=== PATIENT | female | born 1990 | race American Indian/Alaskan Native ===

== ENCOUNTER 2019-07-22 05:39 | Emergency (ER) | payer BC, OTHER ==
[2019-07-22 06:22] LABS: Bacteria,Urine 2+ /HPF (Negative); Bilirubin,Urine NEG (Negative); Blood,Urine SM (Negative); Color,Urine Yellow (Yellow); Mucus,Urine FEW /HPF; Urobilinogen,Urine < 2.0 mg/dL (<2.0)
[2019-07-22 06:24] LABS: HCG Qualitative,Urine Negative (Negative)
[2019-07-22] MEDS ORDERED: SODIUM CHLORIDE 0.9% 1000 ML 1,000 ML IV ONE (07:38)
[2019-07-22] MEDS ORDERED: ONDANSETRON 4 MG/2 ML INJ IV ONE (07:38)
[2019-07-22] MEDS ORDERED: MORPHINE 4 MG/1 ML INJ IV ONE (07:38)
[2019-07-22] MEDS ORDERED: DICYCLOMINE 20 MG TAB PO ONE (07:38)
--- NOTE | 2019-07-22 08:14 | Emergency Department Report ---
ED Abdominal Pain HPI - General Chief Complaint: Abdominal Pain Stated Complaint: ABD PAIN/DIARREAH/VOMITING Time Seen by Provider: 07/22/19 07:30 Source: patient Mode of arrival: Ambulatory Limitations: No Limitations - History of Present Illness Initial Comments: This is a 29-year-old female nontoxic, well nourished in appearance, no acute signs of distress presents to the ED with c/o of nausea and vomiting and abdominal pain 1 day. Patient describes vomiting as food content and yellow gastric acid. Patient describes abdominal pain as cramping and aching with level of 3/10 diffuse. Patient denies any vaginal discharge, flank pain, or pelvic pain. Patient denies chest pain, short of breath, fever, chills, headache, stiff neck, numbness or tingling. Patient denies any diarrhea or constipation. Patient denies any recent travels. Patient denies any allergies. PMH includes appendectomy. MD Complaint: abdominal pain -: days(s) Location: diffuse Radiation: none Migration to: no migration Severity: mild Severity scale (0 -10): 8 Quality: aching Consistency: constant Improves With: nothing Worsens With: nothing Associated Symptoms: nausea, vomiting. denies: diarrhea, fever, chills, constipation, dysuria, hematemesis, hematochezia, melena, hematuria, anorexia, syncope - Related Data Home Medications Medication Instructions Recorded Confirmed Last Taken Ciprofloxacin HCl [Cipro] 500 mg PO BID 04/03/13 04/03/13 05:22 500 mg Hydrocodone Bit/Acetaminophen 1 each PO QID PRN 04/03/13 04/03/13 05:22 [Lortab 5-500 Tablet] 5/500mg Promethazine [Phenergan] 25 mg PO Q6H PRN 04/03/13 04/03/13 04/03/13 05:22 25 mg metroNIDAZOLE [Flagyl] 500 mg PO BID 04/03/13 04/03/13 05:22 500 mg Previous Rx's Medication Instructions Recorded Last Taken Type Ciprofloxacin HCl [Cipro] 500 mg PO Q12H #10 tab 04/14/13 Unknown Rx metroNIDAZOLE [Flagyl] 500 mg PO Q8HR #14 tablet 04/14/13 Unknown Rx Ondansetron [Zofran Odt] 4 mg PO Q8HR PRN #20 tab.rapdis 07/22/19 Unknown Rx Sulfamethoxazole/Trimethoprim 1 each PO BID #14 tablet 07/22/19 Unknown Rx [Bactrim DS TAB] Allergies Allergy/AdvReac Type Severity Reaction Status Date / Time No Known Allergies Allergy Verified 07/22/19 05:41 ED Review of Systems ROS: Stated complaint: ABD PAIN/DIARREAH/VOMITING Other details as noted in HPI Constitutional: denies: chills, fever Eyes: denies: eye pain, eye discharge, vision change ENT: denies: ear pain, throat pain Respiratory: denies: cough, shortness of breath, wheezing Cardiovascular: denies: chest pain, palpitations Endocrine: no symptoms reported Gastrointestinal: abdominal pain, nausea, vomiting. denies: diarrhea Genitourinary: denies: urgency, dysuria, discharge Musculoskeletal: denies: back pain, joint swelling, arthralgia Skin: denies: rash, lesions Neurological: denies: headache, weakness, paresthesias Psychiatric: denies: anxiety, depression Hematological/Lymphatic: denies: easy bleeding, easy bruising ED Past Medical Hx - Past Medical History Hx Congestive Heart Failure: No Hx Diabetes: No Hx Deep Vein Thrombosis: No Hx Asthma: No Hx COPD: No Additional medical history: Diagnosed with UTI - Surgical History Hx Pacemaker: No Hx Internal Defibrillator: No Hx Appendectomy: Yes - Social History Smoking Status: Never Smoker Substance Use Type: Alcohol - Medications Home Medications: Home Medications Medication Instructions Recorded Confirmed Last Taken Type Ciprofloxacin HCl [Cipro] 500 mg PO BID 04/03/13 04/03/13 05:22 History 500 mg Hydrocodone Bit/Acetaminophen 1 each PO QID PRN 04/03/13 04/03/13 05:22 History [Lortab 5-500 Tablet] 5/500mg Promethazine [Phenergan] 25 mg PO Q6H PRN 04/03/13 04/03/13 04/03/13 05:22 History 25 mg metroNIDAZOLE [Flagyl] 500 mg PO BID 04/03/13 04/03/13 05:22 History 500 mg Ciprofloxacin HCl [Cipro] 500 mg PO Q12H #10 tab 04/14/13 Unknown Rx metroNIDAZOLE [Flagyl] 500 mg PO Q8HR #14 tablet 04/14/13 Unknown Rx Ondansetron [Zofran Odt] 4 mg PO Q8HR PRN #20 tab.rapdis 07/22/19 Unknown Rx Sulfamethoxazole/Trimethoprim 1 each PO BID #14 tablet 07/22/19 Unknown Rx [Bactrim DS TAB] ED Physical Exam - General Limitations: No Limitations General appearance: alert, in no apparent distress - Head Head exam: Present: atraumatic, normocephalic - Eye Eye exam: Present: normal appearance - Neck Neck exam: Present: normal inspection, full ROM. Absent: tenderness, meningismus, lymphadenopathy - Respiratory Respiratory exam: Present: normal lung sounds bilaterally. Absent: respiratory distress, wheezes, rales, rhonchi, stridor, chest wall tenderness, accessory muscle use, decreased breath sounds, prolonged expiratory - Cardiovascular Cardiovascular Exam: Present: regular rate, normal rhythm, normal heart sounds. Absent: bradycardia, tachycardia, irregular rhythm, systolic murmur, diastolic murmur, rubs, gallop - GI/Abdominal GI/Abdominal exam: Present: soft, tenderness (diffuse), normal bowel sounds. Absent: distended, guarding, rebound, rigid, diminished bowel sounds - Extremities Exam Extremities exam: Present: normal inspection, full ROM - Back Exam Back exam: Present: normal inspection, full ROM. Absent: tenderness, CVA tenderness (R), CVA tenderness (L), muscle spasm, paraspinal tenderness, vertebral tenderness, rash noted - Neurological Exam Neurological exam: Present: alert, oriented X3, normal gait - Psychiatric Psychiatric exam: Present: normal affect, normal mood - Skin Skin exam: Present: warm, dry, intact, normal color. Absent: rash ED Course Vital Signs 07/22/19 07/22/19 05:42 05:44 Temperature 98.3 F 98.3 F Pulse Rate 83 83 Respiratory 18 18 Rate Blood Pressure 145/94 145/94 O2 Sat by Pulse 99 99 Oximetry - Reevaluation(s) Reevaluation #1: 07/22/19 08:12 Patient is speaking in full sentences with no signs of distress noted. ED Medical Decision Making - Lab Data Result diagrams: 07/22/19 07:55 07/22/19 07:55 - Medical Decision Making This is a 29-year-old female that presents with abdominal pain and UTI. Patient is stable and was examined by me. Labs obtained. UA obtained. CT of abdomen obtained and dictated by the radiologist. Patient is notified of the report with no questions noted by the patient. Vital signs are stable prior to discharge. Patient received medical treatment in the ED which patient stated symptoms has resovled and subsided. Was instructed note to operate any machinery due to possible drowsiness and stated someone will drive the patient home. A by mouth challenge has been obtained and patient tolerated well with no nausea vomiting. Patient was also instructed to Follow-up with a primary care doctor in 3-5 days or if symptoms worsen and continue return to emergency room as soon as possible. At time of discharge, the patient does not seem toxic or ill in appearance. No acute signs of distress noted. Patient agrees to discharge treatment plan of care. No further questions noted by the patient. Critical care attestation.: If time is entered above; I have spent that time in minutes in the direct care of this critically ill patient, excluding procedure time. ED Disposition Clinical Impression: Abdominal pain Qualifiers: Abdominal location: generalized Qualified Code(s): R10.84 - Generalized abdominal pain Nausea & vomiting Qualifiers: Vomiting type: unspecified Vomiting Intractability: non-intractable Qualified Code(s): R11.2 - Nausea with vomiting, unspecified UTI (urinary tract infection) Qualifiers: Urinary tract infection type: site unspecified Hematuria presence: without hematuria Qualified Code(s): N39.0 - Urinary tract infection, site not specified Disposition: DC-01 TO HOME OR SELFCARE Is pt being admited?: No Does the pt Need Aspirin: No Condition: Stable Instructions: Abdominal Pain (ED), Urinary Tract Infection in Women (ED) Additional Instructions: Follow-up with a primary care doctor in 3-5 days or if symptoms worsen and continue return to emergency room as soon as possible. Prescriptions: Sulfamethoxazole/Trimethoprim [Bactrim DS TAB] 1 each PO BID #14 tablet Ondansetron [Zofran Odt] 4 mg PO Q8HR PRN #20 tab.rapdis PRN Reason: Nausea Referrals: GUME MARX MD [Primary Care Provider] - 3-5 Days PRIMARY CAREMD [Referring] - 3-5 Days Forms: Work/School Release Form(ED)
[2019-07-22 08:24] LABS: Basophils % (Auto) 0.3 % (0.0-1.8); Eosinophils % (Auto) 0.8 % (0.0-4.3); Hematocrit 40.7 % (30.3-42.9); Hemoglobin 13.5 gm/dl (10.1-14.3); Lymphocytes # (Auto) 2.3 K/mm3 (1.2-5.4); Lymphocytes % (Auto) 38.2 % (13.4-35.0); Mean Corpuscular HGB Conc 33 % (30-34); Mean Corpuscular Volume 90 fl (79-97); Monocytes # (Auto) 0.5 K/mm3 (0.0-0.8); Monocytes % (Auto) 8.4 % (0.0-7.3); Platelet Count 218 K/mm3 (140-440); Red Blood Count 4.55 M/mm3 (3.65-5.03); Red Cell Distribution Width 13.5 % (13.2-15.2)
[2019-07-22 09:09] LABS: Alanine Aminotransferase 42 units/L (7-56); Albumin 4.6 g/dL (3.9-5); BUN/Creatinine Ratio 16; Blood Urea Nitrogen 8 mg/dL (7-17); Calcium 10.1 mg/dL (8.4-10.2); Hemolysis Index 32
--- NOTE | 2019-07-22 11:45 | Cat Scan Report ---
CT ABDOMEN AND PELVIS WITH CONTRAST INDICATION: Unspecified abdominal pain with nausea and vomiting for 3 days. COMPARISON: No relevant prior imaging study available. TECHNIQUE: Axial, coronal and sagittal CT imaging of the abdomen and pelvis was performed after inje ction of 100 mL Omnipaque [address] scans at this location are performed using CT dose re duction for ALARA by means of automated exposure control. FINDINGS: LOWER CHEST: Mild dependent atelectasis is seen bilaterally. No additional significant abnormality. LIVER: No significant abnormality. BILIARY: No significant abnormality. PANCREAS: No significant abnormality. SPLEEN: No significant abnormality. ADRENALS: No significant abnormality. KIDNEYS AND URETERS: No significant abnormality of the right kidney or ureter. Posteriorly along the left upper renal pole is a calcified cyst measuring 1 cm. No additional significant abnormality of th e left kidney or ureter. GI TRACT: No significant abnormality of the stomach or small bowel. The colon is mostly collapsed wit hout a distinct abnormality. The appendix is surgically absent. PERITONEUM: A small amount of free fluid is seen along the pelvis is likely physiologic. No free air. No fluid collection. LYMPH NODES: No significant adenopathy. VASCULATURE: No significant abnormality. URINARY BLADDER: No significant abnormality. REPRODUCTIVE ORGANS: There is a 2 cm left ovarian follicle. No additional significant abnormality. ADDITIONAL FINDINGS: None. SKELETAL SYSTEM: No significant abnormality. IMPRESSION: 1. No acute abnormality of the abdomen or pelvis. 2. Additional findings as above. Signer Name: Elio Hanson MD Signed: 07/22/2019 11:40 AM Workstation Name: [id number]
[2019-07-22 12:52] VITALS: BP 140/90
== END 2019-07-22 12:51 | disposition home or self-care (01) ==
LOC: ED 05:39
DX: N39.0 Urinary tract infection, site not specified (principal); R11.2 Nausea with vomiting, unspecified; Z90.49 Acquired absence of other specified parts of digestive tract; Z79.899 Other long term (current) drug therapy
CPT/HCPCS: 36415; 74177; 80053; 81001; 81025; 83690; 85025; 87086; 96361; 96374; 96375; 99284; J2270; J2405; J7030; Q9967

== ENCOUNTER 2020-08-22 10:45 | Emergency (ER) | payer OTHER ==
[2020-08-22] MEDS ORDERED: FAMOTIDINE 20 MG TAB PO ONE (11:11)
[2020-08-22] MEDS ORDERED: METOCLOPRAMIDE 10 MG TAB PO ONE (11:12)
--- NOTE | 2020-08-22 11:12 | Emergency Department Report ---
ED Abdominal Pain HPI - General Stated Complaint: ABD PAIN Time Seen by Provider: 08/22/20 11:04 Source: patient Mode of arrival: Ambulatory - History of Present Illness Initial Comments: 30-year-old female presents to the ER today complaint of diffuse abdominal pain for the past 2 weeks. Patient states that has been intermittent in nature. She reports associated intermittent nausea and intermittent diarrhea and she also states that when she eats and sometimes drink she feels like her food is getting stuck in her upper chest throat area. Patient states that she has had similar symptoms off and on for 7 years since she has had a appendectomy. She states that she did see a GI specialist last year and had a colonoscopy and an endoscopy which were both normal. She states that her primary care doctor has scheduled to see an PROP[facility]AL EDITOR on 09/02/2019. She denies any hematochezia, melena, UTI symptoms, abnormal vaginal symptoms, fever or chills. She states that she does not recall ever having a ultrasound or CT scan of her abdomen since she has been having the symptoms even when she saw the GI specialist. MD Complaint: abdominal pain -: week(s) (2.5-week) Location: diffuse Radiation: none Migration to: no migration Severity scale (0 -10): 6 Improves With: nothing Worsens With: nothing Associated Symptoms: nausea, diarrhea - Related Data Home Medications Medication Instructions Recorded Confirmed Last Taken Ciprofloxacin HCl [Cipro] 500 mg PO BID 04/03/13 04/03/13 05:22 500 mg Hydrocodone Bit/Acetaminophen 1 each PO QID PRN 04/03/13 04/03/13 05:22 [Lortab 5-500 Tablet] 5/500mg Promethazine [Phenergan] 25 mg PO Q6H PRN 04/03/13 04/03/13 04/03/13 05:22 25 mg metroNIDAZOLE [Flagyl] 500 mg PO BID 04/03/13 04/03/13 05:22 500 mg Previous Rx's Medication Instructions Recorded Last Taken Type Ciprofloxacin HCl [Cipro] 500 mg PO Q12H #10 tab 04/14/13 Unknown Rx metroNIDAZOLE [Flagyl] 500 mg PO Q8HR #14 tablet 04/14/13 Unknown Rx Sulfamethoxazole/Trimethoprim 1 each PO BID #14 tablet 07/22/19 Unknown Rx [Bactrim DS TAB] Dicyclomine [Bentyl] 10 mg PO TID #20 capsule 08/22/20 Unknown Rx Famotidine [Pepcid] 40 mg PO QHS #30 tablet 08/22/20 Unknown Rx Metoclopramide [Reglan] 10 mg PO BID PRN #12 tab 08/22/20 Unknown Rx Allergies Allergy/AdvReac Type Severity Reaction Status Date / Time No Known Allergies Allergy Verified 07/22/19 05:41 ED Review of Systems ROS: Stated complaint: ABD PAIN Other details as noted in HPI Comment: All other systems reviewed and negative Constitutional: denies: chills, fever Eyes: denies: eye pain, eye discharge, vision change ENT: denies: ear pain, throat pain Respiratory: denies: cough, shortness of breath, SOB with exertion, SOB at rest, stridor, wheezing Cardiovascular: denies: chest pain, palpitations Gastrointestinal: abdominal pain, nausea, diarrhea. denies: vomiting, constipation, hematemesis, melena, hematochezia Genitourinary: denies: urgency, dysuria, frequency, hematuria, discharge, abnormal menses, dyspareunia Musculoskeletal: denies: back pain, joint swelling, arthralgia Skin: denies: rash, lesions Neurological: denies: headache, weakness, paresthesias Psychiatric: denies: anxiety, depression Hematological/Lymphatic: denies: easy bleeding, easy bruising ED Past Medical Hx - Past Medical History Hx Congestive Heart Failure: No Hx Diabetes: No Hx Deep Vein Thrombosis: No Hx Asthma: No Hx COPD: No Additional medical history: Diagnosed with UTI - Surgical History Hx Pacemaker: No Hx Internal Defibrillator: No Hx Appendectomy: Yes - Social History Smoking Status: Never Smoker Substance Use Type: Alcohol - Medications Home Medications: Home Medications Medication Instructions Recorded Confirmed Last Taken Type Ciprofloxacin HCl [Cipro] 500 mg PO BID 04/03/13 04/03/13 05:22 History 500 mg Hydrocodone Bit/Acetaminophen 1 each PO QID PRN 04/03/13 04/03/13 05:22 History [Lortab 5-500 Tablet] 5/500mg Promethazine [Phenergan] 25 mg PO Q6H PRN 04/03/13 04/03/13 04/03/13 05:22 History 25 mg metroNIDAZOLE [Flagyl] 500 mg PO BID 04/03/13 04/03/13 05:22 History 500 mg Ciprofloxacin HCl [Cipro] 500 mg PO Q12H #10 tab 04/14/13 Unknown Rx metroNIDAZOLE [Flagyl] 500 mg PO Q8HR #14 tablet 04/14/13 Unknown Rx Sulfamethoxazole/Trimethoprim 1 each PO BID #14 tablet 07/22/19 Unknown Rx [Bactrim DS TAB] Dicyclomine [Bentyl] 10 mg PO TID #20 capsule 08/22/20 Unknown Rx Famotidine [Pepcid] 40 mg PO QHS #30 tablet 08/22/20 Unknown Rx Metoclopramide [Reglan] 10 mg PO BID PRN #12 tab 08/22/20 Unknown Rx ED Physical Exam - General General appearance: alert, in no apparent distress - Head Head exam: Present: atraumatic, normocephalic, normal inspection - Eye Eye exam: Present: normal appearance, PERRL, EOMI Pupils: Present: normal accommodation - ENT ENT exam: Present: normal exam, mucous membranes moist - Neck Neck exam: Present: normal inspection - Respiratory Respiratory exam: Present: normal lung sounds bilaterally. Absent: respiratory distress - Cardiovascular Cardiovascular Exam: Present: regular rate, normal rhythm, normal heart sounds - GI/Abdominal GI/Abdominal exam: Present: soft, tenderness (Mild tenderness to palpation in the right upper quadrant and epigastric area without guarding or rebound). Absent: distended, guarding, rebound ED Course Vital Signs 08/22/20 08/22/20 10:59 11:36 Temperature 99.0 F Pulse Rate 76 Respiratory 20 18 Rate Blood Pressure 140/85 O2 Sat by Pulse 100 18 L Oximetry ED Medical Decision Making - Lab Data Result diagrams: 08/22/20 11:36 08/22/20 11:36 - Radiology Data Radiology results: report reviewed [facility] [address] [place] [address] Cat Scan Report Signed Patient: SEKOU RUCKER MR#: [id number] : 1990 Acct:[id number] Age/Sex: 30 / F ADM Date: 08/22/20 Loc: ED Attending Dr: Ordering Physician: TERRIE BRANCH Date of Service: 08/22/20 Procedure(s): CT abdomen pelvis w con Accession Number(s): [id number] cc: TERRIE BRANCH CT ABDOMEN AND PELVIS WITH CONTRAST HISTORY: Abdominal pain COMPARISON: Prior CT 07/22/2019 TECHNIQUE: Routine abdominal and pelvic CT exam performed following intravenous contrast administration.. All CT scans at this location are performed using CT dose reduction for ALARA by means of automated exposure control. FINDINGS: CT ABDOMEN: Lung Bases: No significant abnormality. Liver: No significant abnormality. Biliary: No significant abnormality. Spleen: No significant abnormality. Unenlarged. Pancreas: No significant abnormality. Adrenals: No significant abnormality. Kidneys: No significant abnormality. Lymphatics: No lymphadenopathy. Vasculature: No significant abnormality. Bowel/Peritoneum: No significant abnormality. No free air. No free fluid. Appendix is surgically absent. CT PELVIC: : There is a 2 cm left ovarian cyst and small amount of free fluid in the pelvis. Lymphatics: No lymphadenopathy. Osseous Structures: No aggressive appearing osseous lesions. Additional Findings: None IMPRESSION: 1. No acute findings. 2. Left ovarian cyst with small amount free fluid in pelvis which may indicate recent cyst rupture. Signer Name: Edwin Skaggs MD Signed: 08/22/2020 1:39 PM Workstation Name: [id number] Transcribed By: JEANA Dictated By: Edwin Skaggs MD Electronically Authenticated By: Edwin Skaggs MD Signed Date/Time: 08/22/201338 DD/ 36 TD/TT: - Medical Decision Making 30-year-old female presents to the ER today complaint of diffuse abdominal pain for the past 2 weeks. Patient states that has been intermittent in nature. She reports associated intermittent nausea and intermittent diarrhea and she also states that when she eats and sometimes drink she feels like her food is getting stuck in her upper chest throat area. Patient states that she has had similar symptoms off and on for 7 years since she has had a appendectomy. She states that she did see a GI specialist last year and had a colonoscopy and an endoscopy which were both normal. She states that her primary care doctor has scheduled to see an PROPOSAL EDITOR on 09/02/2019. She denies any hematochezia, melena, UTI symptoms, abnormal vaginal symptoms, chest pain, shortness of breath fever or chills. She states that she does not recall ever having a ultrasound or CT scan of her abdomen since she has been having the symptoms even when she saw the GI specialist Patient resting comfortably. Currently on her phone. She is not in any acute pain or respiratory distress at this time. Her vital signs have been stable. She is neurologically intact. CT scan reviewed and shows left ovarian cyst but otherwise nothing acute. Labs unremarkable. Discussed CT results and lab results with patient. Discussed suspected diagnosis and treatment plan with patient. At this time there is no indication for any additional work-up, admission or emergent consult. Recommend that she keeps appointment with her OB PROP[facility]AL EDITOR and also follow-up with her primary care doctor. Patient expressed understanding of instructions and agree with plan. Patient was stable at time of discharge. Critical care attestation.: If time is entered above; I have spent that time in minutes in the direct care of this critically ill patient, excluding procedure time. ED Disposition Clinical Impression: Abdominal pain, Ovarian cyst Disposition: TO HOME OR SELFCARE Is pt being admited?: No Does the pt Need Aspirin: No Condition: Stable Instructions: Abdominal Pain, Adult, [id number], Ovarian Cyst Additional Instructions: Take the medication given as prescribed. Recommend that you follow-up again with your primary care doctor, and keep your appointment with PROPOSAL EDITOR for September 01. Return to the ER if your symptoms worsens or changes in any way. Prescriptions: Famotidine [Pepcid] 40 mg PO QHS #30 tablet Dicyclomine [Bentyl] 10 mg PO TID #20 capsule Metoclopramide [Reglan] 10 mg PO BID PRN #12 tab PRN Reason: Nausea Referrals: GUME MARX MD [Primary Care Provider] - 3-5 Days Forms: Work/School Release Form(ED) Time of Disposition: 14:19
[2020-08-22 11:59] LABS: Basophils % (Auto) 0.4 % (0.0-1.8); Eosinophils # (Auto) 0.1 K/mm3 (0.0-0.4); Eosinophils % (Auto) 1.9 % (0.0-4.3); Hematocrit 38.3 % (30.3-42.9); Hemoglobin 13.1 gm/dl (10.1-14.3); Lymphocytes # (Auto) 1.9 K/mm3 (1.2-5.4); Lymphocytes % (Auto) 39.8 % (13.4-35.0); Mean Corpuscular HGB Conc 34 % (30-34); Mean Corpuscular Volume 89 fl (79-97); Monocytes # (Auto) 0.3 K/mm3 (0.0-0.8); Platelet Count 220 K/mm3 (140-440); Red Cell Distribution Width 13.3 % (13.2-15.2)
[2020-08-22 12:02] LABS: HCG Qualitative,Urine Negative (Negative)
[2020-08-22 12:05] LABS: Bacteria,Urine 1+ /HPF (Negative); Bilirubin,Urine NEG (Negative); Blood,Urine NEG (Negative); Color,Urine Yellow (Yellow); Mucus,Urine FEW /HPF
[2020-08-22 12:18] LABS: Alanine Aminotransferase 18 units/L (7-56); Albumin 4.2 g/dL (3.9-5); Blood Urea Nitrogen 10 mg/dL (7-17); Calcium 8.6 mg/dL (8.4-10.2); Hemolysis Index 11
[2020-08-22 12:22] LABS: BUN/Creatinine Ratio 25; Bilirubin,Direct < 0.2 mg/dL (0-0.2)
--- NOTE | 2020-08-22 13:44 | Cat Scan Report ---
CT ABDOMEN AND PELVIS WITH CONTRAST HISTORY: Abdominal pain COMPARISON: Prior CT 07/22/2019 TECHNIQUE: Routine abdominal and pelvic CT exam performed following intravenous contrast administrat ion.. All CT scans at this location are performed using CT dose reduction for ALARA by means of autom ated exposure control. FINDINGS: CT ABDOMEN: Lung Bases: No significant abnormality. Liver: No significant abnormality. Biliary: No significant abnormality. Spleen: No significant abnormality. Unenlarged. Pancreas: No significant abnormality. Adrenals: No significant abnormality. Kidneys: No significant abnormality. Lymphatics: No lymphadenopathy. Vasculature: No significant abnormality. Bowel/Peritoneum: No significant abnormality. No free air. No free fluid. Appendix is surgically abse nt. CT PELVIC: : There is a 2 cm left ovarian cyst and small amount of free fluid in the pelvis. Lymphatics: No lymphadenopathy. Osseous Structures: No aggressive appearing osseous lesions. Additional Findings: None IMPRESSION: 1. No acute findings. 2. Left ovarian cyst with small amount free fluid in pelvis which may indicate recent cyst rupture. Signer Name: Edwin Skaggs MD Signed: 08/22/2020 1:39 PM Workstation Name: [id number]
[2020-08-22 14:15] VITALS: BP 140/85
== END 2020-08-22 14:41 | disposition home or self-care (01) ==
LOC: ED 10:45
DX: N83.202 Unspecified ovarian cyst, left side (principal); Z90.49 Acquired absence of other specified parts of digestive tract; Z79.899 Other long term (current) drug therapy
CPT/HCPCS: 36415; 74177; 80048; 80076; 81001; 81025; 83690; 85025; 99284; Q9967

== ENCOUNTER 2021-08-14 11:58 | Emergency (ER) | payer OTHER ==
[2021-08-14] MEDS ORDERED: ACETAMINOPHEN 325 MG TAB PO ONE (12:36)
[2021-08-14] MEDS ORDERED: ONDANSETRON 4 MG ODT TAB PO ONE (12:36)
--- NOTE | 2021-08-14 12:37 | Emergency Department Report ---
ED HPI - General Chief complaint: Abdominal Pain Stated complaint: NAUSEA/VOMTING Time Seen by Provider: 08/14/21 12:23 Source: patient Mode of arrival: Ambulatory Limitations: No Limitations - History of Present Illness Initial comments: 31-year-old female presents to the ER today with complaints of abnormal vaginal bleeding. Patient states that she started bleeding last night. She states that initially it was spotting, but then when she woke up the bleeding was heavier and she has since used 3 tampons and is currently wearing a pad. She states that she has taken 3 home tests and they were all positive. Her last normal menstrual cycle was July 13. Patient reports a history of chronic diffuse abdominal pain which she and her primary care doctor have been evaluating, and she is scheduled to follow-up with OB to rule out endometriosis, but she states that since the bleeding started she has had some increased pain in her abdomen. She states that this will be her first . She states that she has been having symptoms of such as breast soreness and nausea but no vomiting. She denies any fever, chills or UTI symptoms. Abdominal surgeries significant for appendectomy. MD Complaint: vaginal bleeding -: Last night - Related Data Home Medications Medication Instructions Recorded Confirmed Last Taken Ciprofloxacin HCl [Cipro] 500 mg PO BID 04/03/13 04/03/13 05:22 500 mg Hydrocodone Bit/Acetaminophen 1 each PO QID PRN 04/03/13 04/03/13 05:22 [Lortab 5-500 Tablet] 5/500mg Promethazine [Phenergan] 25 mg PO Q6H PRN 04/03/13 04/03/13 04/03/13 05:22 25 mg metroNIDAZOLE [Flagyl] 500 mg PO BID 04/03/13 04/03/13 05:22 500 mg Previous Rx's Medication Instructions Recorded Last Taken Type Ciprofloxacin HCl [Cipro] 500 mg PO Q12H #10 tab 04/14/13 Unknown Rx metroNIDAZOLE [Flagyl] 500 mg PO Q8HR #14 tablet 04/14/13 Unknown Rx Sulfamethoxazole/Trimethoprim 1 each PO BID #14 tablet 07/22/19 Unknown Rx [Bactrim DS TAB] Dicyclomine [Bentyl] 10 mg PO TID #20 capsule 08/22/20 Unknown Rx Famotidine [Pepcid] 40 mg PO QHS #30 tablet 08/22/20 Unknown Rx Metoclopramide [Reglan] 10 mg PO BID PRN #12 tab 08/22/20 Unknown Rx Allergies Allergy/AdvReac Type Severity Reaction Status Date / Time No Known Allergies Allergy Verified 07/22/19 05:41 ED Review of Systems ROS: Stated complaint: NAUSEA/VOMTING Other details as noted in HPI Comment: All other systems reviewed and negative Constitutional: denies: chills, fever Eyes: denies: eye pain, eye discharge, vision change ENT: denies: ear pain, throat pain Respiratory: denies: cough, shortness of breath, SOB with exertion, SOB at rest, wheezing Gastrointestinal: abdominal pain, nausea. denies: vomiting, diarrhea, constipation, hematemesis, melena, hematochezia Genitourinary: abnormal menses. denies: urgency, dysuria, frequency, hematuria, discharge Musculoskeletal: denies: back pain, joint swelling, arthralgia, myalgia Skin: denies: rash, lesions, change in color, change in hair/nails, pruritus Neurological: denies: headache, weakness, numbness, paresthesias, confusion, abnormal gait, vertigo Psychiatric: denies: anxiety, depression, auditory hallucinations, visual hallucinations, homicidal thoughts, suicidal thoughts Hematological/Lymphatic: denies: easy bleeding, easy bruising, swollen glands ED Past Medical Hx - Past Medical History Hx Congestive Heart Failure: No Hx Diabetes: No Hx Deep Vein Thrombosis: No Hx Asthma: No Hx COPD: No Additional medical history: Diagnosed with UTI - Surgical History Hx Pacemaker: No Hx Internal Defibrillator: No Hx Appendectomy: Yes - Social History Smoking Status: Never Smoker - Medications Home Medications: Home Medications Medication Instructions Recorded Confirmed Last Taken Type Ciprofloxacin HCl [Cipro] 500 mg PO BID 04/03/13 04/03/13 05:22 History 500 mg Hydrocodone Bit/Acetaminophen 1 each PO QID PRN 04/03/13 04/03/13 05:22 History [Lortab 5-500 Tablet] 5/500mg Promethazine [Phenergan] 25 mg PO Q6H PRN 04/03/13 04/03/13 04/03/13 05:22 History 25 mg metroNIDAZOLE [Flagyl] 500 mg PO BID 04/03/13 04/03/13 05:22 History 500 mg Ciprofloxacin HCl [Cipro] 500 mg PO Q12H #10 tab 04/14/13 Unknown Rx metroNIDAZOLE [Flagyl] 500 mg PO Q8HR #14 tablet 04/14/13 Unknown Rx Sulfamethoxazole/Trimethoprim 1 each PO BID #14 tablet 07/22/19 Unknown Rx [Bactrim DS TAB] Dicyclomine [Bentyl] 10 mg PO TID #20 capsule 08/22/20 Unknown Rx Famotidine [Pepcid] 40 mg PO QHS #30 tablet 08/22/20 Unknown Rx Metoclopramide [Reglan] 10 mg PO BID PRN #12 tab 08/22/20 Unknown Rx ED Physical Exam - General Limitations: No Limitations General appearance: alert, in no apparent distress - Head Head exam: Present: atraumatic, normocephalic, normal inspection - Eye Eye exam: Present: normal appearance, PERRL, EOMI Pupils: Present: normal accommodation - Neck Neck exam: Present: normal inspection, full ROM. Absent: meningismus - Respiratory Respiratory exam: Present: normal lung sounds bilaterally. Absent: respiratory distress, wheezes, rales - Cardiovascular Cardiovascular Exam: Present: regular rate, normal rhythm, normal heart sounds - GI/Abdominal GI/Abdominal exam: Present: soft. Absent: distended, tenderness, guarding, rebound - Neurological Exam Neurological exam: Present: alert, oriented X3, CN II-XII intact, normal gait - Psychiatric Psychiatric exam: Present: normal affect, normal mood - Skin Skin exam: Present: intact ED Course Vital Signs 08/14/21 08/14/21 12:16 16:36 Temperature 98.5 F Pulse Rate 77 80 Respiratory 18 16 Rate Blood Pressure 132/69 Blood Pressure 137/85 [Right] O2 Sat by Pulse 100 99 Oximetry ED Medical Decision Making - Lab Data Result diagrams: 08/14/21 12:51 08/14/21 12:51 - Radiology Data Radiology results: report reviewed Patient Name: SEKOU RUCKER Gender: Female Date of : 1990 Referring Provider: TERRIE BRANCH Organization: [facility] Accession Number: [id number] Requested Date: August 14, 2021 13:47 Report Status: Final Requested Procedure: 1 Procedure Description: US OB transvaginal Modality: US Findings Reporting MD: Elio Hanson Dictation Time: August 14, 2021 14:47 Shiatsu Therapist: Not available Pole Peeler Date: ULTRASOUND OBSTETRIC INDICATION: with vaginal bleeding and pelvic pain. TECHNIQUE: Transvaginal. COMPARISON: None available. FINDINGS: GESTATIONAL SAC: None seen. YOLK SAC: None seen. EMBRYO/FETUS: None seen. ADNEXA: No significant abnormality. FREE FLUID: None. ADDITIONAL FINDINGS: None. IMPRESSION: No intrauterine or ectopic is identified sonographically. No other acute findings in the pelvis. Signer Name: Elio Hanson MD Signed: 08/14/2021 2:47 PM Workstation Name: - Medical Decision Making CBC and CMP unremarkable. Urinalysis negative for UTI. quant hCG was 12.3. OB ultrasound shows no intrauterine or ectopic is identified son ographically. No other acute findings in the pelvis. Patient sitting comfortably in recliner. She is not in any significant distress. She had a soft nontender abdomen. She is neurologically intact and her gait is normal. She is not toxic or ill-appearing. Discussed results with patient. Discussed the diagnosis of threatened miscarriage with patient. Informed her she will need to follow-up with UROGYNECOLOGY PHYSICIAN in 2 to 3 days for repeat quant and possible ultrasound to determine whether she is truly having a miscarriage or could be having a progression in her based on the repeat quant. She understands to return to the ER if her symptoms worsens. Patient was stable at time of discharge. Critical care attestation.: If time is entered above; I have spent that time in minutes in the direct care of this critically ill patient, excluding procedure time. ED Disposition Clinical Impression: Threatened miscarriage in early Disposition: 01 HOME / SELF CARE / HOMELESS Is pt being admited?: No Does the pt Need Aspirin: No Condition: Stable Instructions: Threatened Miscarriage, Abdominal Pain (ED) Additional Instructions: You can take Tylenol as needed for pain. You will need to have your quantitative hCG as well as ultrasound repeated in the next 2 to 3 days and I recommend that you follow-up with your OB. Return if anything changes or worsens. Referrals: PRIMARY CAREMD [Primary Care Provider] - 3-5 Days TEJAS VENTURA MD [Staff Physician] - 3-5 Days Time of Disposition: 15:58
[2021-08-14 13:10] LABS: Basophils % (Auto) 0.3 % (0.0-1.8); Eosinophils % (Auto) 0.9 % (0.0-4.3); Hematocrit 38.6 % (30.3-42.9); Hemoglobin 12.3 gm/dl (10.1-14.3); Lymphocytes # (Auto) 1.9 K/mm3 (1.2-5.4); Lymphocytes % (Auto) 37.2 % (13.4-35.0); Mean Corpuscular HGB Conc 32 % (30-34); Mean Corpuscular Volume 89 fl (79-97); Monocytes # (Auto) 0.5 K/mm3 (0.0-0.8); Monocytes % (Auto) 9.5 % (0.0-7.3); Platelet Count 258 K/mm3 (140-440); Red Blood Count 4.31 M/mm3 (3.65-5.03); Red Cell Distribution Width 12.9 % (13.2-15.2)
[2021-08-14 13:43] LABS: Alanine Aminotransferase 15 units/L (7-56); Albumin 4.2 g/dL (3.9-5); Blood Urea Nitrogen 7 mg/dL (7-17); Calcium 8.8 mg/dL (8.4-10.2); Hemolysis Index 4
[2021-08-14 14:02] LABS: BUN/Creatinine Ratio 12
[2021-08-14 16:39] VITALS: BP 137/85
[2021-08-14 16:56] LABS: Bilirubin,Urine Negative (Negative); Color,Urine Yellow (Yellow)
[2021-08-14 16:57] LABS: Blood,Urine Negative (Negative); Protein,Urine <15 mg/dL mg/dL (Negative)
[2021-08-14 17:52] LABS: RBC,Urine < 1.0 /HPF (0.0-6.0); WBC,Urine < 1.0 /HPF (0.0-6.0)
--- NOTE | 2021-08-14 23:53 | Ultrasound Report ---
ULTRASOUND OBSTETRIC INDICATION: with vaginal bleeding and pelvic pain. TECHNIQUE: Transvaginal. COMPARISON: None available. FINDINGS: GESTATIONAL SAC: None seen. YOLK SAC: None seen. EMBRYO/FETUS: None seen. ADNEXA: No significant abnormality. FREE FLUID: None. ADDITIONAL FINDINGS: None. IMPRESSION: No intrauterine or ectopic is identified sonographically. No other acute findings in the pe lvis. Signer Name: Elio Hanson MD Signed: 08/14/2021 3:47 PM Workstation Name: [id number]
== END 2021-08-14 16:41 | disposition home or self-care (01) ==
LOC: ED 11:58
DX: O20.0 Threatened abortion (principal); Z3A.01 Less than 8 weeks gestation of pregnancy
CPT/HCPCS: 36415; 76817; 80053; 81001; 83690; 84702; 85025; 86900; 86901; 99284; J3490; Q0162